=== PATIENT | male | born 1935 | race Caucasian/White ===

== ENCOUNTER → 2018-07-06 | Outpatient (REF) | LOC: ZCOL.LAB 16:26 | DX: N17.9 Acute kidney failure, unspecified (principal); D64.9 Anemia, unspecified ==

== ENCOUNTER 2018-07-12 14:41 | Inpatient (IN) | payer MEDICARE ==
[~2018-07-12] VITALS: Ht 172.7 cm; Wt 75.8 kg
[2018-07-12] VITALS (12 sets, daily range): BP systolic 99–118; BP diastolic 38–45; PULSE 89–101; TEMP 97.9–98.9
[2018-07-12 15:10] LABS: BASO % 0.2 % (0.0-2.0); EOS # 0.3 (0.0-0.7); EOS % 2.7 % (0-4.0); GRAN # 9.8 (1.4-6.5); GRAN % 78.4 % (42.2-75.2); LYMPH # 1.5 (1.2-3.4); LYMPH % 11.8 % (20.0-51.0); MEAN CELL VOLUME 105 fl (80.0-100.0); MEAN CORPUSCULAR HGB CONC 33 g/dl (33.0-37.0); MEAN PLATELET VOLUME 9.9 fl (7.4-10.4); MONO # 0.7 (0.1-0.6); MONO % 5.8 % (1.7-9.3); PLATELET COUNT 196 K/mm3 (130-400); RED BLOOD COUNT 1.29 M/mm3 (4.20-5.60); REDCELL DISTRIBUTION WIDTH-CV 17.3 % (11.5-14.5)
[2018-07-12 15:11] LABS: MEAN CORPUSCULAR HEMOGLOBIN 34 pg (27.0-31.0)
[2018-07-12 15:17] LABS: ALBUMIN 2.7 gm/dL (3.5-5.0); BILIRUBIN,TOTAL 0.2 mg/dL (0.0-1.0); CALCIUM 8.1 mg/dL (8.4-10.2); CREATININE, serum 4.36 (0.66-1.25); TOTAL PROTEIN 5.5 gm/dL (6.4-8.2)
[2018-07-12 15:20] LABS: HEMATOCRIT 13.5 % (42.0-52.0); HEMOGLOBIN 4.4 g/dl (13.5-18.0)
[2018-07-12] MEDS ORDERED: OMEGA-3 1000 MG1 CAP PO (15:35)
[2018-07-12] MEDS ORDERED: COLESTID 1GM1 G PO (15:35)
[2018-07-12] MEDS ORDERED: GARLIC100 MG PO (15:35)
[2018-07-12] MEDS ORDERED: MULTI-VITAMIN W1 TA1 PO (15:36)
[2018-07-12] MEDS ORDERED: DEMADEX100 MG PO (15:38)
[2018-07-12] MEDS ORDERED: TUMS500 MG (15:38)
[2018-07-12] MEDS ORDERED: LOPRESSOR 550 MG/TAB PO (15:39)
[2018-07-12] MEDS ORDERED: PROCTOFOAM-HC F10 G1 RC (15:40)
[2018-07-12] MEDS ORDERED: TOPROL XL 25MG25 MG PO (15:40)
[2018-07-12] MEDS ORDERED: TYLENOL 500MG500 MG PO (15:41)
[2018-07-12 15:45] LABS: ARTERIAL BLD GAS O2 SATURATION 96.2 % (92-100); ARTERIAL BLD GAS TCO2 CT 27.6; ARTERIAL BLOOD GAS BASE EXCESS 3.5 (-2-2); ARTERIAL BLOOD GAS HCO3 26.6 meq/L (22-26); ARTERIAL BLOOD GAS PCO2 32.3 mmHg (35-45); ARTERIAL BLOOD GAS PO2 93.5 mmHg (80-100); ARTERIAL BLOOD GAS pH 7.53 (7.35-7.45)
[2018-07-12] MEDS ORDERED: ULTRAM 50MG TAB50 MG PO (17:02)
--- NOTE | 2018-07-12 18:41 | NUR ---
Pt arrived to room 310 at this time. He is A/O x3. His breathing is even and unlabored on RA. Pt denies SOB. Pt currently denies any pain. No N/V. IVF infusing into LAC without complications. Jaya hose removed per SHARAD Pérez. Mild edema present. Dialysis catheter to R chest CDI. POC discussed with patient and his family who verbalize understanding. They deny needs at this time. Call light within reach.
--- NOTE | 2018-07-12 19:34 | NUR ---
PATIENT LAYING IN BED VISITING WITH FAMILY. DENIES COMPLAINTS OF PAIN OR DISCOMFORT. FIRST UNIT OF BLOOD START ORDERED PER PROTOCOL. PATIENT AND FAMILY NOTIFIED OF SYMPTOMS TO REPORT.
--- NOTE | 2018-07-12 20:25 | NUR ---
Incontinent of urine. Care provided. Blood transfusion infusing without complications. Denies needs. Call light in reach.
--- NOTE | 2018-07-12 21:03 | NUR ---
NEW ORDER RECEIVED FROM DR. WILEY FOR GI CONSULT FOR GI BLEED. CONSULT CALLED TO DR SINGH.
--- NOTE | 2018-07-12 22:32 | NUR ---
2 UNIT OF BLOOD TRANSFUSING AT 120ML/HR. STARTED AT 2200. SEE FLOW SHEET FOR FVS OBTAINED. PATIENT CURRENTLY LAYING IN BED WITH EYES CLOSED. PRESENTS WITH RELAXED BODY POSTURE AND EVEN NON LABORED RESPIRATIONS. CALL LIGHT WITHIN REACH.
[2018-07-13] VITALS (9 sets, daily range): BP systolic 104–153; BP diastolic 47–63; PULSE 81–112; TEMP 97.3–98.7
--- NOTE | 2018-07-13 00:22 | NUR ---
Resting in bed. Incontinent of urine and continent in urinal. Cares provided. denies needs at this time. Call light in reach.
[2018-07-13 00:31] LABS: COLLECTION METHOD CLEAN CATCH
[2018-07-13 00:39] LABS: PH 6 (5-8); SQUAMOUS EPITHELIAL None Seen /hpf; URINE APPEARANCE Clear; URINE BACTERIA None Seen /hpf; URINE BILIRUBIN Negative (NEGATIVE); URINE BLOOD 1+ (NEGATIVE); URINE COLOR Yellow; URINE GLUCOSE Negative (NEGATIVE); URINE KETONE Negative (NEGATIVE); URINE LEUKOCYTE ESTERASE Negative (NEGATIVE); URINE NITRATE Negative (NEGATIVE); URINE PROTEIN(semi-quant) Negative (NEGATIVE); URINE RBC 0-2 /hpf; URINE UROBILINOGEN Negative (NEGATIVE)
--- NOTE | 2018-07-13 03:15 | NUR ---
BED ALARM SOUNDING. PATIENT ATTEMPTING TO REPOSITION SELF. PATIENT ASSISTED TO REPOSITION. DENIES COMPLAINTS OF PAIN OR DISCOMFORT. ATTITUDE CALM AND COOPERATIVE. BED ALARM ARMED AND CALL LIGHT WITHIN REACH. PATIENT LAYING WITH EYES CLOSED AT END OF VISIT.
--- NOTE | 2018-07-13 06:13 | NUR ---
PATIENT LAYING IN BED ASLEEP. SLEPT WITH NO COMPLAINTS ONCE BLOOD TRANSFUSIONS COMPLETED. BEDROSE ROUND ON PATIENT. ORDERS FOR DIALYSIS THIS AM. ORDER FOR GI CONSULT. COMPLETED BY DR SINGH WITH ORDER EGD 07/13/18 NO TIME SCHEDULED AT THIS TIME. NO BLOODY STOOLS THIS SHIFT. FAMILY IN ATTENDENCE EARLY EVENING.
[2018-07-13 06:14] LABS: BASO % 0.5 % (0.0-2.0); EOS # 0.5 (0.0-0.7); EOS % 5.5 % (0-4.0); GRAN # 6.2 (1.4-6.5); GRAN % 72.9 % (42.2-75.2); LYMPH # 1.1 (1.2-3.4); LYMPH % 13.4 % (20.0-51.0); MEAN CORPUSCULAR HGB CONC 33 g/dl (33.0-37.0); MEAN PLATELET VOLUME 10.1 fl (7.4-10.4); MONO # 0.6 (0.1-0.6); MONO % 6.8 % (1.7-9.3); PLATELET COUNT 166 K/mm3 (130-400); RED BLOOD COUNT 1.89 M/mm3 (4.20-5.60); REDCELL DISTRIBUTION WIDTH-CV 16.9 % (11.5-14.5)
[2018-07-13 06:19] LABS: HEMATOCRIT 18.2 % (42.0-52.0); MEAN CELL VOLUME 96 fl (80.0-100.0); MEAN CORPUSCULAR HEMOGLOBIN 32 pg (27.0-31.0)
[2018-07-13 06:27] LABS: ALBUMIN 2.4 gm/dL (3.5-5.0); CALCIUM 7.6 mg/dL (8.4-10.2); POTASSIUM 3.6 mmol/L (3.4-5.0)
[2018-07-13 06:29] LABS: CREATININE, serum 4.59 (0.66-1.25)
--- NOTE | 2018-07-13 06:57 | NUR ---
Report given to Con Ivory
--- NOTE | 2018-07-13 07:15 | NUR ---
Pt down for dialysis at this time.
--- NOTE | 2018-07-13 10:00 | NUR ---
Pt assessment complete. Pt finished dialysis, tolerated it well. Pt currently denies any pain. No SOB. +BS, pt asking if he can eat. POC discussed with patient with plan to have EGD this afternoon, pt verbalized understanding. Plan to transfuse another unit after procedures are complete. Pt has no needs at this time, pt assisted to the chair. Call light within reach.
--- NOTE | 2018-07-13 10:06 | NUR ---
Blood down to dialysis at this time. Dialysis nurse to transfuse first unit.
--- NOTE | 2018-07-13 11:11 | NUR ---
Pt back from dialysis at this time. He denies pain. Will hold off on AM meds and 2nd unit of blood until EGD is complete.
--- NOTE | 2018-07-13 12:21 | NUR ---
Pt left for EGD at this time.
--- NOTE | 2018-07-13 13:00 | NUR ---
Pt arrived back to room 310 at this time. He is A/O x3. His breathing is even and unlabored on RA. Pt denies pain at this time. Vitals stable. Gag reflex intact, will order patient lunch at this time.
--- NOTE | 2018-07-13 14:23 | NUR ---
VERENICE met with patient to discuss discharge planning. Patient is currently at [facility] for senior living, PT and OT. Patient reports he plans to return there when he is discharged. Patient signed choice form. Patient's PCP is Dr Fitzgerald and [facility] supplies all prescriptions. Patient does not use any DME. Patient does have a DPOA. VERENICE will fax updates to [facility].
[2018-07-13 15:48] LABS: HEMOGLOBIN 7.7 g/dl (13.5-18.0)
--- NOTE | 2018-07-13 16:10 | NUR ---
Spoke with Dr. Pérez, plan to cancel 2nd unit of blood this afternoon.
--- NOTE | 2018-07-13 19:46 | NUR ---
Pt report given to RUBA Hernandez. Pt tolerated dialysis well today, and recovered from EGD without any issues. Pt's family caught up on POC, they verbalize understanding and are in agreeance. Pt has denied any pain or concerns through the day. Has had fair appetite. No needs at this time. Call light within reach.
--- NOTE | 2018-07-13 23:28 | NUR ---
Patient assessed around 1999. Alert and oriented, but forgetful. Denies having pain and discomfort. Voices no needs or concerns. LS CTA. Respirations even and unlabored. Denies SOB and dyspnea. HRR. Heart rate does increase when up walking around/going to the bathroom. 2+ edema BLE. 1+ edema LUE. Peripheral IV to left AC flushed. Site is patent, and without redness, warmth, and pain. Dialysis catheter to right chest. Dressing to area is CDI. 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 Blanchable. Denies pain to area. Scabbed over ulcers to bilateral great big toes. Denies having any needs or concerns. Resting in bed with eyes closed at this time. Call light is within reach.
[2018-07-14] VITALS (14 sets, daily range): BP systolic 135–168; BP diastolic 44–133; PULSE 87–108; TEMP 98–99.5
--- NOTE | 2018-07-14 04:57 | NUR ---
Patient has not had any complaints of pain or discomfort throughout this shift so far. Has been resting in bed with eyes closed. Was incontinent once during the night. Staff assisted with changing and perineal hygiene care. Denies having any needs or concerns. Resting in bed with eyes closed at this time. Call light is within reach.
--- NOTE | 2018-07-14 06:41 | NUR ---
Report given to RUBA Martinez.
[2018-07-14 07:16] LABS: BASO % 0.5 % (0.0-2.0); EOS # 0.5 (0.0-0.7); EOS % 5.5 % (0-4.0); GRAN % 73.3 % (42.2-75.2); LYMPH # 1.1 (1.2-3.4); LYMPH % 12.9 % (20.0-51.0); MEAN CELL VOLUME 95 fl (80.0-100.0); MEAN CORPUSCULAR HGB CONC 34 g/dl (33.0-37.0); MEAN PLATELET VOLUME 9.7 fl (7.4-10.4); MONO # 0.6 (0.1-0.6); MONO % 7.1 % (1.7-9.3); PLATELET COUNT 130 K/mm3 (130-400); REDCELL DISTRIBUTION WIDTH-CV 17.2 % (11.5-14.5)
[2018-07-14 07:28] LABS: MEAN CORPUSCULAR HEMOGLOBIN 33 pg (27.0-31.0)
[2018-07-14 07:30] LABS: HEMOGLOBIN 6.5 g/dl (13.5-18.0)
[2018-07-14 07:36] LABS: ALBUMIN 2.3 gm/dL (3.5-5.0); CALCIUM 7.9 mg/dL (8.4-10.2); CREATININE, serum 3.43 (0.66-1.25); PHOSPHOROUS 3.8 mg/dL (2.5-4.5); POTASSIUM 3.7 mmol/L (3.4-5.0)
--- NOTE | 2018-07-14 08:00 | NUR ---
Called Dr. Pérez to inform of Hgb of 6.5, dropped from 7.7 yesterday. Unit of blood was held yesterday due to last bag available. Dr. Pérez ok'd to give unit of blood.
--- NOTE | 2018-07-14 09:30 | NUR ---
Assessment complete. Lung sounds diminished bilateral bases. Heart rate normal, irregular rhythm. Bowel sounds present. Denies SOB, dizziness, chest pain. Patient A&O, up with assist. Right big toe has ulcer that is scabbed over. Reddened and blanchable area on coccyx, per daughter in law "from radiation". LAC IV INT. Pulses strong radially. BLE and BUE edema 2+. Patient is pale, cap refill <3. Patient assisted with brief change. Had scant amount of black tarry stool. No other needs at this time, call light within reach.
--- NOTE | 2018-07-14 12:45 | NUR ---
Patient blood transfusion started by RUBA Ortiz. RUBA Ortiz remained at patient bedside for first 15 min, no complications or reactions. VSS. Transfusion started at 60 ml/hr.
--- NOTE | 2018-07-14 13:16 | NUR ---
Initial visit; Patient and family thanked [employer]inkler Truck Driver for looking in on him and wishing him well.
--- NOTE | 2018-07-14 13:44 | NUR ---
New IV started, 20G in right wrist. Blood transfusing in LAC IV, leaking. Blood transfusion restarted in new IV site, no complications. VSS.
--- NOTE | 2018-07-14 13:53 | NUR ---
Patient tolerating blood transfusion. Rate at 125 ml/hr. No complications. Daughter at bedside. Denies needs at this time.
--- NOTE | 2018-07-14 14:55 | NUR ---
D/C 02 PER POLICY PATIENT ON ROOMAIR FOR MORE THAN 24HRS
--- NOTE | 2018-07-14 17:20 | NUR ---
2ND UNIT OF BLOOD STARTED TRANSFUSING AT THIS TIME. THIS NURSE IS REMAINING WITH THE PATIENT FOR FIRST 15 MINUTES. PATIENT IS EATING DINNER. NO COMPLICATIONS AT THIS TIME. BLOOD IS TRANSFUSING AT 60 ML/HR.
--- NOTE | 2018-07-14 17:37 | NUR ---
Patient tolerating blood transfusion. no complications. VSS. Rate increased to 100 ml/hr. Daughter in law at bedside. Call light within reach. No other needs at this time.
--- NOTE | 2018-07-14 18:41 | NUR ---
Patient tolerating blood transfusion. VSS. Rate increased to 125 ml/hr. Family at bedside. Denies other needs at this time.
--- NOTE | 2018-07-14 19:30 | NUR ---
Patient resting in bed, family has gone home. Blood still transfusing, no complications. Patients heart rate has been low 100s. Patient denies pain, no other complaints. Report given to RUBA Lozano. No other needs at this time.
--- NOTE | 2018-07-14 20:15 | NUR ---
PT IN BED WITH HOB AT 30 DEGREE ANGLE, WITH NO S/S OF ANY ALLERGIC REACTIONS TO BLOOD TRANSFUSION. RESP EVEN AND UNLABORED WITH NO C/O PAIN OR DISCOMFORT. PT WANTING TO GO TO SLEEP, SINCE IT IS HIS BEDTIME. PT A/O X4 AND HAS CALL LIGHT IN REACH AND WAS ADVISED TO CALL IF NEEDING ASSISTANCE.
--- NOTE | 2018-07-14 20:34 | NUR ---
PT A/O X4, BLOOD TRANSFUSION DONE AT 2009. PT DENIES PAIN OR DISCOMFORT AND NO NEEDS AT THIS TIME. CALL LIGHT WITHIN REACH.
[2018-07-14 20:47] LABS: ALBUMIN 2.5 gm/dL (3.5-5.0); CALCIUM 7.9 mg/dL (8.4-10.2); PHOSPHOROUS 3.9 mg/dL (2.5-4.5); POTASSIUM 4.1 mmol/L (3.4-5.0)
[2018-07-14 20:48] LABS: CREATININE, serum 3.97 (0.66-1.25)
[2018-07-15] VITALS (7 sets, daily range): BP systolic 130–160; BP diastolic 52–64; PULSE 76–103; TEMP 97.6–98.8
--- NOTE | 2018-07-15 01:15 | NUR ---
PT HAD AN INCONTINENT BOWEL MOVEMENT EPISODE. HIS BM WAS BLACK AND SOFT FORMED, PT DID NOT CALL FOR ASSISTANCE. WAS CALLED BY TELEY BECAUSE HEART RATE WENT UP. WENT INTO ROOM RIGHT-AWAY AND PT WAS IN BED WITH BM ON HIM AND ON BEDDING. PT WAS CLEANED UP AND BEDDING WAS CHANGED. PT DENIES PAIN OR DISCOMFORT, NO FURTHER NEEDS CALL LIGHT WITHIN REACH.
--- NOTE | 2018-07-15 03:20 | NUR ---
RECEIVED CALL FROM TELEMETRY THAT PT'S HAD 6 SECOND RUN OF SVT AT 0309. DR. KENNEDY CALLED AND ADVISED OF 6 SECOND RUN OF SVT. RECEIVED ORDERS FROM DR. KENNEDY TO GIVE METOPROLOL 25MG PO NOW AND THEN DAILY.
--- NOTE | 2018-07-15 03:31 | NUR ---
GAVE PT METOPROLOL 25MG PO. PT DENIES ANY PAIN OR DISCOMFORT. NO FURTHER NEEDS CALL LIGHT WITHIN REACH.
--- NOTE | 2018-07-15 06:18 | NUR ---
PT DID GET SOME SLEEP THIS NOC. PT IS PLEASANT AND COOPERATIVE. PT DENIES ANY PAIN OR DISCOMFORT AND NO NEEDS AT THIS TIME. CALL LIGHT WITHIN REACH.
[2018-07-15 06:22] LABS: BASO # 0.1 (0.0-0.2); BASO % 0.5 % (0.0-2.0); EOS # 0.5 (0.0-0.7); EOS % 4.7 % (0-4.0); GRAN # 8.1 (1.4-6.5); LYMPH # 0.9 (1.2-3.4); LYMPH % 9.1 % (20.0-51.0); MEAN CELL VOLUME 93 fl (80.0-100.0); MEAN CORPUSCULAR HGB CONC 34 g/dl (33.0-37.0); MONO # 0.7 (0.1-0.6); PLATELET COUNT 138 K/mm3 (130-400); RED BLOOD COUNT 2.73 M/mm3 (4.20-5.60)
[2018-07-15 06:23] LABS: HEMATOCRIT 25.5 % (42.0-52.0); HEMOGLOBIN 8.6 g/dl (13.5-18.0); MEAN CORPUSCULAR HEMOGLOBIN 32 pg (27.0-31.0)
[2018-07-15 06:33] LABS: ALBUMIN 2.5 gm/dL (3.5-5.0); CALCIUM 7.9 mg/dL (8.4-10.2); PHOSPHOROUS 4.4 mg/dL (2.5-4.5); POTASSIUM 3.8 mmol/L (3.4-5.0)
[2018-07-15 06:42] LABS: CREATININE, serum 4.13 (0.66-1.25)
--- NOTE | 2018-07-15 08:30 | NUR ---
Assessment complete. Patient A&Ox4. Denies pain and discomfort. VS stable. IV CDI. Dialysis catheter CDI. Patient right hand, first 2 fingers red from gout. Pain with palpation noted. No further needs expressed from patient. Call light within reach
[2018-07-15] MEDS ORDERED: ELIQUIS 5MG PO (12:13)
[2018-07-15] MEDS ORDERED: PRIL40 PO (12:14)
[2018-07-15] MEDS ORDERED: LACRI LUBE1 OIN OP (12:15)
[2018-07-15] MEDS ORDERED: TYLENOL 8 HR PO (12:15)
[2018-07-15] MEDS ORDERED: EXELON3 MG PO (12:16)
[2018-07-15] MEDS ORDERED: ASPIRIN E.C. 8181 MG PO (12:24)
[2018-07-15] MEDS ORDERED: SENNA-LAX8.6 MG PO (12:26)
[2018-07-15] MEDS ORDERED: TOPROL XL 25MG25 MG PO (12:26)
[2018-07-15] MEDS ORDERED: FLOMAX 0.40.4 MG/CAP PO (12:27)
[2018-07-15] MEDS ORDERED: ULTRAM 50MG TAB50 MG PO (12:27)
[2018-07-15] MEDS ORDERED: CARDIZEM CD 24240 MG PO (12:28)
[2018-07-15] MEDS ORDERED: B COMPLEX #11 TAB PO (12:28)
[2018-07-15] MEDS ORDERED: NITROSTAT0.4 MG/TAB SL (12:29)
[2018-07-15] MEDS ORDERED: TAMBOCOR 1100 MG/TAB PO (12:30)
[2018-07-15] MEDS ORDERED: COZAAR 25MG25 MG/TAB PO (12:30)
[2018-07-15] MEDS ORDERED: NAMENDA 10MG TA10 MG PO (12:31)
[2018-07-15] MEDS ORDERED: LASIX 40MG TABL40 MG PO (12:31)
[2018-07-15] MEDS ORDERED: CLARITIN 1010 MG/TAB PO (12:32)
[2018-07-15] MEDS ORDERED: ROBITUSSIN A-C S1 M1 PO (12:33)
[2018-07-15] MEDS ORDERED: HYDROCORTISONE30 G3 TP (12:34)
[2018-07-15] MEDS ORDERED: IPRATROPIUM BROM3 M1 INH (12:36)
[2018-07-15] MEDS ORDERED: SALONPAS (12:38)
[2018-07-15] MEDS ORDERED: SYSTANE 0.4%-0.1 SOL OP (12:39)
--- NOTE | 2018-07-15 13:17 | NUR ---
PAtient taken by wheelchair for dialysis. No further needs expressed from patient
--- NOTE | 2018-07-15 14:05 | NUR ---
VERENICE spoke with Dr Pérez. He reports patient will stay here through the weekend.
[2018-07-15 17:21] LABS: BASO # 0.1 (0.0-0.2); BASO % 0.4 % (0.0-2.0); EOS # 0.4 (0.0-0.7); EOS % 2.8 % (0-4.0); GRAN # 11.3 (1.4-6.5); GRAN % 83.5 % (42.2-75.2); LYMPH % 7.3 % (20.0-51.0); MEAN CELL VOLUME 93 fl (80.0-100.0); MEAN CORPUSCULAR HGB CONC 34 g/dl (33.0-37.0); MEAN PLATELET VOLUME 9.8 fl (7.4-10.4); MONO # 0.7 (0.1-0.6); MONO % 5.5 % (1.7-9.3); PLATELET COUNT 156 K/mm3 (130-400); RED BLOOD COUNT 3.37 M/mm3 (4.20-5.60); REDCELL DISTRIBUTION WIDTH-CV 18.1 % (11.5-14.5)
[2018-07-15 17:24] LABS: HEMATOCRIT 31.2 % (42.0-52.0); HEMOGLOBIN 10.6 g/dl (13.5-18.0); MEAN CORPUSCULAR HEMOGLOBIN 31 pg (27.0-31.0)
--- NOTE | 2018-07-15 18:42 | NUR ---
PAtient resting in bed, states that he is tired. Alert and easily aroused. Denies pain or discomfort. IV CDI. Incontinent brief changed, loose tarry stool. PAtient repositioned for comfort. No further needs expressed from patient. Call light within reach
--- NOTE | 2018-07-15 20:59 | NUR ---
PT IN BED WITH HOB AT 15 DEGREE ANGLE A/O X4. PT WAS CHANGED BY [employer] B[employer] DIRECTOR FOR INCONTIENCE. PT DENIES PAIN OR DISCOMFORT AND WANTS TO TRY AND SLEEP AT THIS TIME. NO NEEDS AND CALL LIGHT WITHIN REACH.
[2018-07-16 04:12] VITALS: BP 125/54; PULSE 83; TEMP 98.3
[2018-07-16 07:00] LABS: BASO # 0.1 (0.0-0.2); BASO % 0.5 % (0.0-2.0); EOS # 0.5 (0.0-0.7); EOS % 4.9 % (0-4.0); GRAN # 7.2 (1.4-6.5); GRAN % 79.1 % (42.2-75.2); LYMPH # 0.8 (1.2-3.4); LYMPH % 8.9 % (20.0-51.0); MEAN CELL VOLUME 94 fl (80.0-100.0); MEAN CORPUSCULAR HGB CONC 33 g/dl (33.0-37.0); MEAN PLATELET VOLUME 9.9 fl (7.4-10.4); MONO # 0.6 (0.1-0.6); MONO % 6.2 % (1.7-9.3); PLATELET COUNT 139 K/mm3 (130-400); RED BLOOD COUNT 2.68 M/mm3 (4.20-5.60); REDCELL DISTRIBUTION WIDTH-CV 17.7 % (11.5-14.5)
[2018-07-16 07:01] VITALS: BP 140/53; PULSE 84; TEMP 97.9
[2018-07-16 07:10] LABS: HEMATOCRIT 25.2 % (42.0-52.0); HEMOGLOBIN 8.4 g/dl (13.5-18.0); MEAN CORPUSCULAR HEMOGLOBIN 31 pg (27.0-31.0)
[2018-07-16 07:14] LABS: ALBUMIN 2.5 gm/dL (3.5-5.0); CALCIUM 8.2 mg/dL (8.4-10.2); CREATININE, serum 3.31 (0.66-1.25); PHOSPHOROUS 4.2 mg/dL (2.5-4.5); POTASSIUM 3.5 mmol/L (3.4-5.0)
--- NOTE | 2018-07-16 07:37 | NUR ---
UNEVENTFUL NIGHT, PT SLEPT/RESTED WELL WITH NO S/S OF PAIN OR DISCOMFORT NOTED. CALL LIGHT WITHIN REACH.
--- NOTE | 2018-07-16 08:15 | NUR ---
Assessment complete.patient awake,a/ox3.denies pain or discomfort at this time.LSCTA.breathing even and unlabored.patient denies having any bloody stools.hgb 8.4.no other needs voiced.will continue to monitor.call light in reach
[2018-07-16 11:35] VITALS: BP 145/63; PULSE 73; TEMP 97.9
[2018-07-16] MEDS ORDERED: FLAGYL500 MG PO (11:56)
[2018-07-16] MEDS ORDERED: BIAXIN 500MG T500 MG PO (11:56)
[2018-07-16] MEDS ORDERED: LASIX 40MG TABL40 MG PO (12:01)
[2018-07-16] MEDS ORDERED: ZYLOPRIM 300MG300 MG PO (12:02)
[2018-07-16 13:03] VITALS: BP 145/63; PULSE 73; TEMP 97.9
--- NOTE | 2018-07-16 13:30 | NUR ---
PT DISCHARGED TO [facility] AT THIS TIME.REPORT CALLED TO NURSE AT [facility].IV AND TELE DISCONTINUED.FAMILY ACCOMPANIED PATIENT.ALL BELONGINGS TAKEN.
--- NOTE | 2018-07-16 15:57 | NUR ---
reports wanting to DC today. Patient was informed of DC to [facility] for today. Patient agreeable to plan. VERENICE faxed DC orders to [facility] with updates . VERENICE notified nursing of transfer at 01:30 p:m. Pick and transfer accepted. Nothing Follows.
== END 2018-07-16 15:01 | DRG 682 ==
LOC: COL.ER 14:41 → MEDICAL 15:29
PROVIDERS: Family Medicine; Internal Medicine Gastroenterology; ADMIT Internal Medicine Nephrology
PROC: 0W3P8ZZ Control Bleeding in Gastrointestinal Tract, Via Natural or Artificial Opening Endoscopic (ICD-10-PCS; principal; 2018-07-13 12:30)
DX: N17.9 Acute kidney failure, unspecified (principal); K26.4 Chronic or unspecified duodenal ulcer with hemorrhage; D62 Acute posthemorrhagic anemia; C20 Malignant neoplasm of rectum; E46 Unspecified protein-calorie malnutrition; Z66 Do not resuscitate; M10.9 Gout, unspecified; Z87.891 Personal history of nicotine dependence; F10.10 Alcohol abuse, uncomplicated; B96.81 Helicobacter pylori [H. pylori] as the cause of diseases classified elsewhere; I12.9 Hypertensive chronic kidney disease with stage 1 through stage 4 chronic kidney disease, or unspecified chronic kidney disease; N18.3 Chronic kidney disease, stage 3 (moderate); K21.0 Gastro-esophageal reflux disease with esophagitis; K44.9 Diaphragmatic hernia without obstruction or gangrene
CPT/HCPCS: J0882; J1644; J1940; J2704; J2916; J7030; P9016; P9040

== ENCOUNTER → 2018-07-17 | Outpatient (REF) ==
[~2018-07-17] MED LIST: ASPIRIN E.C. 8181 MG PO; B COMPLEX #11 TAB PO; BIAXIN 500MG T500 MG PO; CARDIZEM CD 24240 MG PO; CLARITIN 1010 MG/TAB PO; COLESTID 1GM1 G PO; COZAAR 25MG25 MG/TAB PO; DEMADEX100 MG PO; ELIQUIS 5MG PO; EXELON3 MG PO; FLAGYL500 MG PO; FLOMAX 0.40.4 MG/CAP PO; GARLIC100 MG PO; HYDROCORTISONE30 G3 TP; IPRATROPIUM BROM3 M1 INH; LACRI LUBE1 OIN OP; LASIX 40MG TABL40 MG PO; LOPRESSOR 550 MG/TAB PO; MULTI-VITAMIN W1 TA1 PO; NAMENDA 10MG TA10 MG PO; NITROSTAT0.4 MG/TAB SL; OMEGA-3 1000 MG1 CAP PO; PRIL40 PO; PROCTOFOAM-HC F10 G1 RC; ROBITUSSIN A-C S1 M1 PO; SALONPAS; SENNA-LAX8.6 MG PO; SYSTANE 0.4%-0.1 SOL OP; TAMBOCOR 1100 MG/TAB PO; TOPROL XL 25MG25 MG PO; TUMS500 MG; TYLENOL 500MG500 MG PO; TYLENOL 8 HR PO; ULTRAM 50MG TAB50 MG PO; ZYLOPRIM 300MG300 MG PO
[2018-07-17 08:40] LABS: BASO # 0.1 (0.0-0.2); BASO % 0.7 % (0.0-2.0); EOS # 0.6 (0.0-0.7); GRAN # 6.3 (1.4-6.5); GRAN % 74.7 % (42.2-75.2); LYMPH # 0.8 (1.2-3.4); LYMPH % 9.9 % (20.0-51.0); MEAN CELL VOLUME 94 fl (80.0-100.0); MEAN CORPUSCULAR HGB CONC 33 g/dl (33.0-37.0); MEAN PLATELET VOLUME 10.2 fl (7.4-10.4); MONO # 0.6 (0.1-0.6); MONO % 7.1 % (1.7-9.3); PLATELET COUNT 165 K/mm3 (130-400); REDCELL DISTRIBUTION WIDTH-CV 17.2 % (11.5-14.5)
[2018-07-17 08:41] LABS: HEMATOCRIT 26.3 % (42.0-52.0); HEMOGLOBIN 8.6 g/dl (13.5-18.0); MEAN CORPUSCULAR HEMOGLOBIN 31 pg (27.0-31.0)
== END ==
LOC: ZCOL.LAB 08:36
PROVIDERS: Internal Medicine
DX: D64.9 Anemia, unspecified (principal)